=== PATIENT | female | born 1975 | race Two or more races ===

== ENCOUNTER 2024-09-13 16:27 | Emergency (ER) | payer OTHER ==
[~2024-09-13] VITALS: Ht 165.1 cm; Wt 78.9 kg
[2024-09-13] MEDS ORDERED: FAMOTIDINE/PF 20 MG/2 ML VIAL IV PUSH STA (17:40)
[2024-09-13] MEDS ORDERED: CEFTRIAXONE SODIUM 2,000 MG VIAL IV STA (17:42)
[2024-09-13] MEDS ORDERED: TRAMADOL HCL 50 MG TABLET PO STA (17:43)
[2024-09-13] MEDS ORDERED: CEFTRIAXONE SODIUM 2,000 MG VIAL ONE (17:57)
[2024-09-13] MEDS ORDERED: FAMOTIDINE/PF 20 MG/2 ML VIAL ONE (17:57)
[2024-09-13 18:00] LABS: HEMATOCRIT 42.1 % (36.0-45.00); HEMOGLOBIN 13.7 g/dL (12.0-15.00); MEAN CELL VOLUME 80.6 fL (80.00-100.00); MEAN CORPUSCULAR HEMOGLOBIN 26.1 pg (27.00-32.0); MEAN CORPUSCULAR HGB CONC 32.4 g/dl (32.0-36.0); PLATELET COUNT 231 K/uL (150-450); RED BLOOD COUNT 5.23 M/uL (4.00-6.00); RED CELL DISTRIBUTION WIDTH 15.9 % (11.5-14.5)
[2024-09-13 18:22] LABS: PH,URINE 5.5 (5.0-8.0); URINE APPEARANCE Cloudy; URINE BACTERIA 3724.4 uL (0.0-1933); URINE BILIRRUBIN Negative (NEGATIVE); URINE BLOOD Negative; URINE CAST 6.33 uL (0.0-1.40); URINE COLOR Yellow; URINE EPITHELIAL CELLS 89.7 uL (0.0-38.8); URINE LEUKOCYTE Negative; URINE NITRATE Negative; URINE PROTEIN Trace (NEGATIVE); URINE RBC 8.9 uL (0.0-20.8); URINE UROBILINOGEN 0.2 E.U./dl; URINE WBC 63.4 uL (0.0-23.2)
[2024-09-13 18:39] LABS: URINE GLUCOSE >=1000 MG/DL (NEGATIVE); URINE KETONE 40 (NEGATIVE)
[2024-09-13 18:40] LABS: CALCIUM 9.7 mg/dL (8.5-10.1); CREATININE SERUM 0.76 mg/dL (0.55-1.02); GFR 81.57; POTASSIUM 3.39 mEq/L (3.5-5.1)
[2024-09-13 18:41] LABS: URINE YEAST MODERATE /hpf
[2024-09-13] MEDS ORDERED: KETOROLAC TROMETHAMINE 15 MG VIAL IV STA (19:10)
[2024-09-13] MEDS ORDERED: KETOROLAC TROMETHAMINE 30 MG VIAL ONE (19:37)
== END 2024-09-13 20:15 | disposition home or self-care (01) ==
LOC: ER 16:30
PROVIDERS: General Practice
DX: N39.0 Urinary tract infection, site not specified (principal); Z88.8 Allergy status to other drugs, medicaments and biological substances